=== PATIENT | male | born 2000 | race Caucasian/White ===

== ENCOUNTER 2022-04-28 22:22 | Emergency (ER) | payer OTHER ==
[~2022-04-28] VITALS: Ht 180.3 cm; Wt 138.3 kg
[2022-04-28 22:34] VITALS: BP 149/90
--- NOTE | 2022-04-28 22:39 | NUR ---
TO LOBBY A/W BED AMBULATORY
--- NOTE | 2022-04-28 22:43 | NUR ---
PT TO 8
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
--- NOTE | 2022-04-28 23:03 | NUR ---
Lukasz rowe in [facility] - 04/28/22 at [email or web address] Adam examining patient.
--- NOTE | 2022-04-28 23:04 | NUR ---
Dr. Adam examining patient.
--- NOTE | 2022-04-28 23:09 | NUR ---
X-Ray at bedside.
[2022-04-28 23:25] LABS: BASOPHILS # (AUTO) 0.1 K/uL (0.00-0.22); EOSINOPHILS # (AUTO) 0.2 K/uL (0-0.4); EOSINOPHILS % (AUTO) 1.7 % (0.0-4.0); HEMATOCRIT 43.8 % (36-52); HEMOGLOBIN 14.9 g/dL (12.0-18.0); LYMPHOCYTES # (AUTO) 2.3 K/uL (2.0-11.5); LYMPHOCYTES % (AUTO) 23.5 % (20.5-51.1); MEAN CORPUSCULAR HEMOGLOBIN 31 pg (27-31); MEAN CORPUSCULAR HGB CONC 34 g/dL (33-37); MEAN CORPUSCULAR VOLUME 91.6 fL (80-94); MONOCYTES % (AUTO) 10.7 % (1.7-9.3); NEUTROPHILS # (AUTO) 6.2 K/uL (1.8-7.7); NEUTROPHILS % (AUTO) 63.1 % (42.2-75.2); PLATELET COUNT (AUTO) 290 K/uL (140-450); RED BLOOD CELL COUNT(AUTO) 4.78 MIL/uL (4.20-6.10); WHITE BLOOD COUNT (AUTO) 9.8 K/uL (4.5-11.0)
[2022-04-28 23:25] LABS: APPEARANCE,URINE CLEAR (CLEAR); BILIRUBIN,URINE NEGATIVE (NEGATIVE); BLOOD, URINE NEGATIVE (NEGATIVE); COLOR,URINE YELLOW (YELLOW); LEUKOCYTE ESTERASE ,URINE NEGATIVE (NEGATIVE); NITRITE, URINE NEGATIVE (NEGATIVE); PH,URINE 6.5 (5.0-9.0); UGLUCOSE NEGATIVE (NEGATIVE)
--- NOTE | 2022-04-28 23:34 | NUR ---
Pt verbalize understanding of he will be undergoing CT study with contrast
[2022-04-28 23:45] LABS: ANION GAP 13.6 (8-16); CARBON DIOXIDE 26.3 mmol/L (21-32); POTASSIUM 3.9 mmol/L (3.5-5.1)
[2022-04-28 23:56] LABS: ALBUMIN 3.7 g/dL (3.4-5.0); TOTAL BILIRUBIN 0.3 mg/dL (0.0-1.0)
--- NOTE | 2022-04-29 00:23 | NUR ---
PT TAKEN TO CT
--- NOTE | 2022-04-29 00:24 | NUR ---
Pt taken to Radiology in stable condition
--- NOTE | 2022-04-29 00:40 | NUR ---
PT RETURN FROM CT
[2022-04-29] MEDS ORDERED: IBUP-2213 PO (02:21)
[2022-04-29] MEDS ORDERED: LID5T TP (02:22)
[2022-04-29 02:44] VITALS: BP 149/90
--- NOTE | 2022-04-29 02:45 | NUR ---
Patient discharged with v/s stable. Written and verbal after care instructions given and explained. Patient verbalized understanding. New prescriptions for ibuprofen and lidocaine. Ambulatory with steady gait. All questions addressed prior to discharge. Advised to follow up with PMD.
== END 2022-04-29 02:45 | disposition home or self-care (01) ==
LOC: MED 22:22
DX: S06.0X0A Concussion without loss of consciousness, initial encounter (principal); S20.219A Contusion of unspecified front wall of thorax, initial encounter; S30.1XXA Contusion of abdominal wall, initial encounter; Z79.899 Other long term (current) drug therapy; Z88.6 Allergy status to analgesic agent; V89.2XXA Person injured in unspecified motor-vehicle accident, traffic, initial encounter; Y93.89 Activity, other specified; Y92.89 Other specified places as the place of occurrence of the external cause; Y99.8 Other external cause status
CPT/HCPCS: 36415; 70450; 71045; 74177; 80053; 81003; 83690; 85025; 93005; 99285; Q0092; Q9967